=== PATIENT | male | born 1945 | race Caucasian/White ===

== ENCOUNTER → 2016-05-22 | Outpatient (CLI) | payer MEDICARE, OTHER | LOC: NM 08:45 | DX: R07.9 Chest pain, unspecified (principal) | CPT/HCPCS: ECHO; 78452; 93017; 93306; A9502; J2785 ==

== ENCOUNTER → 2016-08-05 | Outpatient (CLI) | payer MEDICARE | LOC: RAD 10:27 | DX: M79.632 Pain in left forearm (principal) | CPT/HCPCS: 73090 ==

== ENCOUNTER 2016-08-11 12:35 | Emergency (ER) | payer MEDICARE ==
[2016-08-11 13:36] LABS: HEMOGLOBIN 15.6 gm/dl (14.0-17.5); RED BLOOD COUNT 5.04 M/UL (4.20-5.50); WHITE BLOOD COUNT 6.6 K/UL (4.5-11.0)
== END 2016-08-11 16:24 | disposition home or self-care (01) ==
LOC: ER1 12:35
PROVIDERS: Nurse Practitioner Family
DX: N20.0 Calculus of kidney (principal); E11.9 Type 2 diabetes mellitus without complications; E78.5 Hyperlipidemia, unspecified
CPT/HCPCS: 36415; 80053; 81001; 85025; 87086; 96374; 96375; 99284; J2270; J2405

== ENCOUNTER 2016-08-16 09:32 | Emergency (ER) | payer MEDICARE | END 2016-08-16 12:41 | disposition home or self-care (01) | LOC: ER1 09:32 | DX: M51.27 Other intervertebral disc displacement, lumbosacral region (principal); E11.9 Type 2 diabetes mellitus without complications; Z87.891 Personal history of nicotine dependence | CPT/HCPCS: 72131; 81001; 96372; 99284; J2270 ==